=== PATIENT | female | born 1945 | race Caucasian/White ===

== ENCOUNTER → 2024-05-29 08:28 | Outpatient (REF) | payer MEDICARE, OTHER, SELFPAY ==
[2024-05-29 09:11] LABS: Hematocrit 48.6 % (37.0-47.0); Hemoglobin 16.1 g/dL (12.0-16.0); Mean Corp Hgb Conc. 33.1 g/dL (33.0-37.0); Mean Corpuscular Hgb 29.6 pg (27.0-31.0); Mean Corpuscular Volume 89.3 fL (81.0-99.0); Platelet Count 358 10^3/uL (130-400); Red Blood Cell Count 5.44 10^6/uL (4.20-5.40); Red Cell Dist. Width 13.2 % (11.5-14.5); White Blood Cell Count 7.1 10^3/uL (4.8-10.8)
[2024-05-29 09:39] LABS: ALT (SGPT) 19 U/L (0-35); AST (SGOT) 26 U/L (14-36); Albumin 4.9 g/dl (3.5-5.0); Alkaline Phosphatase 144 U/L (38-126); Blood Urea Nitrogen 12 mg/dl (7-17); Calcium 9.6 mg/dl (8.4-10.2); Carbon Dioxide 26 mmol/L (22-30); Chloride 101 mmol/L (98-107); Glucose 178 mg/dl (70-99); HDL Cholesterol 79 mg/dl; LDL Cholesterol, Calculated 137 mg/dl; Potassium 4.5 mmol/L (3.5-5.1); Sodium 139 mmol/L (135-145); Total Bilirubin 0.9 mg/dl (0.2-1.3); Total Cholesterol 235 mg/dl (50-199); Total Protein 8.2 g/dl (6.3-8.2); Triglyceride 96 mg/dl (10-149); Very Low Density Lipoprotein 19 mg/dl (0-30); eGFR > 60.00
[2024-05-29 10:09] LABS: TSH 3.69 uIU/ml (0.47-4.68)
[2024-05-29 12:50] LABS: Glycohemoglobin (HgbA1c) 7.3 % (4.0-5.6)
== END ==
LOC: REG 08:28
PROVIDERS: ATTENDING PHYSICIAN Family Medicine; FAMILY PHYSICIAN Family Medicine
DX: E11.69 Type 2 diabetes mellitus with other specified complication (principal); E78.2 Mixed hyperlipidemia; E03.9 Hypothyroidism, unspecified; I10 Essential (primary) hypertension
CPT/HCPCS: 36415; 80053; 80061; 83036; 84443; 85027